=== PATIENT | female | born 1995 | race American Indian/Alaskan Native ===

== ENCOUNTER 2019-10-29 12:01 | Inpatient (IN) | payer BC, MEDICAID ==
[2019-10-30] MEDS ORDERED: Misoprostol 50 MCG (1/2 of 100 MCG) Tab VAG ONE ×2 (06:54→11:32)
[2019-10-30] MEDS ORDERED: Sodium Chloride 0.9% 10 ML Syringe FLUSH PRN (07:41)
--- NOTE | 2019-10-30 07:52 | PCM.LDHP ---
L&D History of Present Illness - General Date of Service: 10/30/19 (elective induction) Admit Problem/Dx: Patient Status Order with Admit Dx/Problem 10/30/19 07:41 Patient Status [ADT] Routine Admission Diagnosis/Problem Admission Diagnosis/Problem Elective induction of labor planned Source of Information: Patient History Limitations: Reports: No Limitations - History of Present Illness Introduction:: this 23 year old G1 who is 40 3/7 weeks presents for elective induction. Maybe just cervical ripening today as cervix is FT/50/-2. 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: : 1 LMP (Approximate): ([facility] 10/27/19) H&P Review of Systems - Review of Systems: Review Of Systems: See Below General: Reports: No Symptoms HEENT: Reports: No Symptoms Pulmonary: Reports: No Symptoms Cardiovascular: Reports: No Symptoms Gastrointestinal: Reports: No Symptoms Genitourinary: Reports: No Symptoms Musculoskeletal: Reports: No Symptoms Skin: Reports: No Symptoms Psychiatric: Reports: No Symptoms Neurological: Reports: No Symptoms Hematologic/Lymphatic: Reports: No Symptoms Immunologic: Reports: No Symptoms L&D Exam - Exam Exam: See Below - OB Specific Contraction Intensity: Mild Movement: Active Heart Tones: Present Heart Tones per Min: 135 Heart Rate (FHR) Variability: Moderate (6-25 bmp) Presentation: Vertex Estimated Weight: 7 pounds - Ribeiro Score Ribeiro Score Cervix Position: Posterior Ribeiro Score Consistency: Soft Ribeiro Score Effacement: 51-70% Ribeiro Score Dilation: Closed Ribeiro Score 's Station: -2 Ribeiro Score Total: 5 - Exam General: Alert, Oriented HEENT: PERRLA Neck: Supple Lungs: Clear to Auscultation Cardiovascular: Regular Rate, Regular Rhythm GI/Abdominal Exam: Normal Bowel Sounds Genitourinary: Normal external exam, Normal bimanual exam Back Exam: Normal Inspection Extremities: Normal Inspection, No Pedal Edema Skin: Warm, Dry, Intact Neurological: Cranial Nerves Intact Psychiatric: Alert, Normal Affect, Normal Mood - Patient Data Lab Results Last 24 hrs: Laboratory Results - last 24 hr 10/30/19 Range/Units 07:11 WBC 9.7 (4.5-11.0) K/uL RBC 3.96 (3.30-5.50) M/uL Hgb 10.7 L (12.0-15.0) g/dL Hct 33.9 L (36.0-48.0) % MCV 86 (80-98) fL MCH 27 (27-31) pg MCHC 32 (32-36) % Plt Count 261 (150-400) K/uL Neut % (Auto) 66 (36-66) % Lymph % (Auto) 25 (24-44) % [place] % (Auto) 8 H (2-6) % Eos % (Auto) 1 L (2-4) % Baso % (Auto) 0 (0-1) % Result Diagrams: 10/30/19 07:11 - Problem List (1) Elective induction of labor planned SNOMED Code(s): 810512506 ICD Code: [id number] - Status: Acute Current Visit: Yes (2) SNOMED Code(s): 54604037 ICD Code: Z34.90 - ENCNTR FOR SUPRVSN OF NORMAL , UNSP, UNSP TRIMESTER Status: Acute Current Visit: Yes Qualifiers: Weeks of gestation: 40 weeks Qualified Code(s): Z3A.40 - 40 weeks gestation of Problem List Initiated/Reviewed/Updated: Yes Orders Last 24hrs: Active Orders 24 hr Category Date Time Status Patient Status [ADT] Routine ADT 10/30/19 07:41 Ordered Antiembolic Devices [RC] .Routine Care 10/30/19 07:42 Ordered Communication Order [RC] ASDIRECTED Care 10/30/19 07:40 Ordered Communication Order [RC] ASDIRECTED Care 10/30/19 07:40 Ordered Communication Order [RC] ASDIRECTED Care 10/30/19 07:40 Ordered Communication Order [RC] ASDIRECTED Care 10/30/19 07:40 Ordered Communication Order [RC] ASDIRECTED Care 10/30/19 07:41 Ordered Heart Tones [RC] PER UNIT ROUTINE Care 10/30/19 07:41 Ordered Non Stress Test [RC] Click to Edit Care 10/30/19 07:40 Ordered Notify Provider Vital Signs [RC] PRN Care 10/30/19 07:41 Ordered Notify Provider [RC] PRN Care 10/30/19 07:40 Ordered Notify Provider [RC] PRN Care 10/30/19 07:41 Ordered Notify Provider [RC] STAT Care 10/30/19 07:40 Ordered VTE/DVT Education [RC] Click to Edit Care 10/30/19 07:42 Ordered Vital Signs [RC] PER UNIT ROUTINE Care 10/30/19 07:40 Ordered Vital Signs [RC] PER UNIT ROUTINE Care 10/30/19 07:41 Ordered Clear Liquid Diet [DIET] Diet 10/30/19 Lunch Ordered DRUG SCREEN, URINE [URCHEM] Routine Lab 10/30/19 07:11 Ordered UA W/MICROSCOPIC [URIN] Routine Lab 10/30/19 07:11 Ordered Sodium Chloride 0.9% [Saline Flush] Med 10/30/19 07:41 Ordered 10 ml FLUSH ASDIRECTED PRN fentaNYL [Sublimaze] Med 10/30/19 07:41 Ordered 100 mcg IVPUSH Q1H PRN DVT/VTE Prophylaxis Reflex [OM.PC] Routine Oth 10/30/19 07:41 Ordered Saline Lock Insert [OM.PC] Routine Oth 10/30/19 07:41 Ordered Resuscitation Status Routine Resus Stat 10/30/19 07:41 Ordered Assessment/Plan Comment:: 23 year old G1 40 3/7 weeks, elective induction. Bishops score 5, today maybe just cervical ripening and she goes home later, time will tell reactive NST, cat one strip All labs normal this morning Plan: Miso 50 mcg at 0730, will assess at noon for change Up and about may eat lightly reviewed with her the plan and she is in agreement.
--- NOTE | 2019-10-30 12:30 | PCM.PNLD ---
Labor Progress Note - VS & Meds Vital Signs: Last Vital Signs Temp 97.1 F 10/30/19 11:00 Pulse 79 10/30/19 11:00 Resp 16 10/30/19 11:00 BP 139/94 H 10/30/19 11:00 Pulse Ox 98 10/30/19 11:00 Active Medications: Current Medications Fentanyl (Sublimaze) 100 mcg IVPUSH Q1H PRN PRN Reason: Pain (moderate 4-6) Sodium Chloride (Saline Flush) 10 ml FLUSH ASDIRECTED PRN PRN Reason: Keep Vein Open Discontinued Medications Misoprostol (Cytotec) 50 mcg VAG ONETIME ONE Stop: 10/30/19 06:55 Last Admin: 10/30/19 07:26 Dose: 50 mcg Misoprostol (Cytotec) 50 mcg VAG ONETIME ONE Stop: 10/30/19 11:33 Last Admin: 10/30/19 12:19 Dose: 50 mcg - Uterine Contractions Uterine Monitoring Mode: External [place] Contraction Frequency (min): 2-4 Contraction Duration (sec): 60-90 Contraction Intensity: Mild Uterine Resting Tone: Soft - Monitoring Monitor Mode: Doppler/Auscultation Heart Rate (FHR) Baseline: 135 Heart Rate (FHR) Variability: Moderate (6-25 bmp) Accelerations: Present, 15x15 Decelerations: None Strip Review: Category I - Vaginal Exam Dilation (cm): fingertip Effacement (Percent): 50 Station: -2 Cervical Position: Posterior Sterile Vaginal Exam Performed By: Jailyn Navarro Vaginal Exam Comment: no cervical change since this morning, second dose of Miso placed at 1230, 50 mcg - Labor Progress (Free Text) Labor Progress: Elver's blood pressure was up this morning and continues to be elevated. Labs positive for proteinuria and elevated creatinine protein ratio. Preeclampsia, need to keep and progress to delivery. ce: ft/50/-2 cat one strip monitor for labor If no change by 1530 will start pitocin IV
--- NOTE | 2019-10-30 15:06 | PCM.PNLD ---
Labor Progress Note - VS & Meds Vital Signs: Last Vital Signs Temp 97.1 F 10/30/19 11:00 Pulse 75 10/30/19 13:20 Resp 18 10/30/19 13:20 BP 142/100 H 10/30/19 13:20 Pulse Ox 96 10/30/19 13:20 Active Medications: Current Medications Fentanyl (Sublimaze) 100 mcg IVPUSH Q1H PRN PRN Reason: Pain (moderate 4-6) Oxytocin/Sodium Chloride (Pitocin In Ns 20 Units/1,000 Ml) 20 unit in 1,000 mls @ 6 mls/hr IV TITRATE VIDAL; Protocol Sodium Chloride (Saline Flush) 10 ml FLUSH ASDIRECTED PRN PRN Reason: Keep Vein Open Discontinued Medications Misoprostol (Cytotec) 50 mcg VAG ONETIME ONE Stop: 10/30/19 06:55 Last Admin: 10/30/19 07:26 Dose: 50 mcg Misoprostol (Cytotec) 50 mcg VAG ONETIME ONE Stop: 10/30/19 11:33 Last Admin: 10/30/19 12:19 Dose: 50 mcg - Uterine Contractions Uterine Monitoring Mode: External [place] Contraction Frequency (min): 2 Contraction Duration (sec): 40-60 Contraction Intensity: Mild to Moderate Uterine Resting Tone: Soft - Monitoring Monitor Mode: Doppler/Auscultation Heart Rate (FHR) Baseline: 135 Heart Rate (FHR) Variability: Moderate (6-25 bmp) Accelerations: Present, 15x15 Decelerations: None Strip Review: Category I - Vaginal Exam Dilation (cm): fingertip Effacement (Percent): 50 Station: -2 Cervical Position: Posterior Sterile Vaginal Exam Performed By: Jailyn Navarro Vaginal Exam Comment: softer cervix, no dilation. - Labor Progress (Free Text) Labor Progress: preeclampsia Plan: Pitocin until 1900. If progressing will proceed. If no progression till stop the Pitocin and rest for the night. I will also order Ambien for sleep tonight. Will reassessment at 1700 for any change.
[2019-10-30] MEDS ORDERED: Lactated Ringers 1,000 ML IV SCH (15:15)
[2019-10-30] MEDS: fentaNYL 100 MCG/2 ML SDV IVPUSH PRN ×3 (16:12→19:35)
[2019-10-30] MEDS: Ondansetron 4 MG/2 ML SDV IVPUSH PRN (16:25)
[2019-10-30] MEDS ORDERED: Lactated Ringers 500 ML IV ONE (19:00)
--- NOTE | 2019-10-30 19:17 | PCM.PNLD ---
Labor Progress Note - VS & Meds Vital Signs: Last Vital Signs Temp 97.7 F 10/30/19 17:00 Pulse 85 10/30/19 18:30 Resp 20 10/30/19 18:30 BP 150/87 H 10/30/19 18:30 Pulse Ox 97 10/30/19 18:30 Active Medications: Current Medications Fentanyl (Sublimaze) 100 mcg IVPUSH Q1H PRN PRN Reason: Pain (moderate 4-6) Last Admin: 10/30/19 17:32 Dose: 100 mcg Oxytocin/Sodium Chloride (Pitocin In Ns 20 Units/1,000 Ml) 20 unit in 1,000 mls @ 6 mls/hr IV TITRATE VIDAL; Protocol Last Titration: 10/30/19 19:02 Dose: 0 munits/min, 0 mls/hr Lactated Ringer's (Ringers, Lactated) 1,000 mls @ 0 mls/hr IV ASDIRECTED VIDAL Last Admin: 10/30/19 15:15 Dose: 25 mls/hr Lactated Ringer's (Ringers, Lactated) 500 mls @ 999 mls/hr IV ASDIRECTED ONE Stop: 10/30/19 19:30 Ondansetron HCl (Zofran) 4 mg IVPUSH Q6H PRN PRN Reason: Nausea/Vomiting Last Admin: 10/30/19 16:25 Dose: 4 mg Sodium Chloride (Saline Flush) 10 ml FLUSH ASDIRECTED PRN PRN Reason: Keep Vein Open Discontinued Medications Misoprostol (Cytotec) 50 mcg VAG ONETIME ONE Stop: 10/30/19 06:55 Last Admin: 10/30/19 07:26 Dose: 50 mcg Misoprostol (Cytotec) 50 mcg VAG ONETIME ONE Stop: 10/30/19 11:33 Last Admin: 10/30/19 12:19 Dose: 50 mcg - Uterine Contractions Uterine Monitoring Mode: External [place] Contraction Frequency (min): 2-3 Contraction Duration (sec): 40-60 Contraction Intensity: Moderate to Strong Uterine Resting Tone: Soft - Monitoring Monitor Mode: Doppler/Auscultation Heart Rate (FHR) Baseline: 135 Heart Rate (FHR) Variability: Moderate (6-25 bmp) Accelerations: Present, 15x15 Decelerations: Late, Intermittent (<50% x 20 min) Strip Review: Category II - Vaginal Exam Dilation (cm): 3.5 Effacement (Percent): 80 Station: 0 Cervical Position: Anterior Sterile Vaginal Exam Performed By: Jailyn Navarro Vaginal Exam Comment: nice change since 1699. very uncomfortable - Labor Progress (Free Text) Labor Progress: Cat two strip. , o2, fluid bolus and decreased pitocin strip has improved to a cat one after interventions. Also needs god pain management. She has agreed to epidural, consent signed and BANK EXAMINER paged. Pitocin off now until epidural in and she may not need anymore if she continues to progress.
[2019-10-30] MEDS ORDERED: Lactated Ringers 1,000 ML IV ONE (19:29)
[2019-10-30] MEDS ORDERED: ePHEDrine 50 MG/ML SDV IVPUSH PRN (19:29)
[2019-10-30] MEDS ORDERED: Ropivacaine 100 ML ONE (20:08)
--- NOTE | 2019-10-30 21:52 | PCM.PNLD ---
Labor Progress Note - VS & Meds Vital Signs: Last Vital Signs Temp 97.9 F 10/30/19 21:30 Pulse 87 10/30/19 21:30 Resp 18 10/30/19 21:30 BP 120/78 10/30/19 21:30 Pulse Ox 99 10/30/19 21:30 Active Medications: Current Medications Ephedrine Sulfate (Ephedrine Sulfate) 10 mg IVPUSH ASDIRECTED PRN PRN Reason: Hypotension Fentanyl (Sublimaze) 100 mcg IVPUSH Q1H PRN PRN Reason: Pain (moderate 4-6) Last Admin: 10/30/19 19:35 Dose: 100 mcg Oxytocin/Sodium Chloride (Pitocin In Ns 20 Units/1,000 Ml) 20 unit in 1,000 mls @ 6 mls/hr IV TITRATE VIDAL; Protocol Last Titration: 10/30/19 19:02 Dose: 0 munits/min, 0 mls/hr Lactated Ringer's (Ringers, Lactated) 1,000 mls @ 0 mls/hr IV ASDIRECTED VIDAL Last Admin: 10/30/19 15:15 Dose: 25 mls/hr Ondansetron HCl (Zofran) 4 mg IVPUSH Q6H PRN PRN Reason: Nausea/Vomiting Last Admin: 10/30/19 16:25 Dose: 4 mg Sodium Chloride (Saline Flush) 10 ml FLUSH ASDIRECTED PRN PRN Reason: Keep Vein Open Discontinued Medications Lactated Ringer's (Ringers, Lactated) 500 mls @ 999 mls/hr IV ASDIRECTED ONE Stop: 10/30/19 19:30 Last Admin: 10/30/19 19:38 Dose: Not Given Lactated Ringer's (Ringers, Lactated) 1,000 mls @ 999 mls/hr IV .BOLUS ONE Stop: 10/30/19 20:29 Last Admin: 10/30/19 19:38 Dose: 999 mls/hr Ropivacaine (Naropin 0.2%) Confirm Administered Dose 100 mls @ as directed .ROUTE .STK-MED ONE Stop: 10/30/19 20:09 Misoprostol (Cytotec) 50 mcg VAG ONETIME ONE Stop: 10/30/19 06:55 Last Admin: 10/30/19 07:26 Dose: 50 mcg Misoprostol (Cytotec) 50 mcg VAG ONETIME ONE Stop: 10/30/19 11:33 Last Admin: 10/30/19 12:19 Dose: 50 mcg - Uterine Contractions Uterine Monitoring Mode: External [place] Contraction Frequency (min): 1.5-2 Contraction Duration (sec): 40-60 Contraction Intensity: Moderate Uterine Resting Tone: Soft - Monitoring Monitor Mode: Doppler/Auscultation Heart Rate (FHR) Baseline: 135 Heart Rate (FHR) Variability: Moderate (6-25 bmp) Accelerations: Present, 15x15 Decelerations: Late, Prolonged (>2x10 min), Recurrent (>50% x 20 min) Strip Review: Category III - Vaginal Exam Dilation (cm): 6-7 Effacement (Percent): 80 Station: 0 Cervical Position: Anterior Sterile Vaginal Exam Performed By: Bonnie Turcios Vaginal Exam Comment: in the past 45 minutes strip has changed and late decels are constant. - Labor Progress (Free Text) Labor Progress: emergent c section, staff called
[2019-10-30] MEDS ORDERED: Succinylcholine 200 MG/10 ML MDV ONE (21:56)
[2019-10-30] MEDS ORDERED: Propofol 200 MG/20 ML SDV ONE (21:56)
[2019-10-30] MEDS ORDERED: Oxytocin 10 Units/1 ML SDV ONE (21:58)
[2019-10-30] MEDS ORDERED: ceFAZolin 1 GM Vial ONE (22:05)
[2019-10-30] MEDS ORDERED: cefOXitin 1 GM Vial ONE (22:18)
[2019-10-30] MEDS ORDERED: Dexamethasone 4 MG/ML SDV ONE (22:39)
[2019-10-30] MEDS ORDERED: Neostigmine Methylsulfate 1 MG/ML 5 ML Syringe ONE (22:39)
[2019-10-30] MEDS ORDERED: Glycopyrrolate 0.2 MG/ML 5 ML MDV ONE (22:39)
[2019-10-30] MEDS ORDERED: Ondansetron 4 MG/2 ML SDV ONE (22:39)
[2019-10-30] MEDS ORDERED: Rocuronium 50 MG/5 ML Vial ONE (22:39)
[2019-10-30] MEDS ORDERED: fentaNYL 250 MCG/5 ML SDV ONE (22:40)
[2019-10-30] MEDS ORDERED: cefOXitin 2 GM Vial ONE (22:41)
[2019-10-30] MEDS ORDERED: Oxytocin 10 Units/1 ML SDV IM ONE (22:43)
[2019-10-30] MEDS ORDERED: fentaNYL 100 MCG/2 ML SDV ONE (23:22)
[2019-10-30] MEDS ORDERED: HYDROmorphone/Normal Saline 15 MG/30 ML PCA IV PRN (23:41)
[2019-10-30] MEDS ORDERED: Naloxone 0.4 MG/ML SDV IVPUSH PRN (23:41)
[2019-10-31] MEDS ORDERED: hydrOXYzine HCL 100 MG/2 ML SDV IM PRN (00:12)
[2019-10-31] MEDS ORDERED: Dextrose 5%-Lactated Ringers 1,000 ML IV SCH (00:15)
[2019-10-31] MEDS ORDERED: cefOXitin 2 GM in Sodium Chloride 0.9% 50 ML IV SCH (01:00)
[2019-10-31] MEDS: Ibuprofen 600 MG Tab PO SCH ×5 (02:10→17:43)
[2019-10-31] MEDS: Acetaminophen 500 MG Tab PO SCH ×4 (02:15→18:25)
--- NOTE | 2019-10-31 02:58 | ANES ---
DATE OF SERVICE: 10/30/2019 INDICATION: I was consulted by Jailyn Navarro to assess the patient for prolonged stage II labor. Upon arrival, I found a healthy 23-year-old Elver Kelly, . I explained to her and discussed with her epidural and found no contraindications with lab work as well as history. TECHNIQUE: I had her seated at the edge of the bed. Betadine prep x3 to lumbar region. Sterile drape was placed, 1% lidocaine skin wheal at the L4-L5 region. A 17-gauge Tuohy was placed to loss of resistance. Negative CSF, negative heme, negative paresthesia. I then placed a silicone catheter to 15 cm at the skin, removed the needle, began a test dose 3 mL of 1.5% lidocaine with 1:200,000 epinephrine. The catheter was then secured to her back and placed her in a supine position. She had negative sequelae from the test dose. I then dosed her with 12 mL of 0.2% ropivacaine and began an infusion of 12 mL an hour of the same 0.2% ropivacaine. She tolerated the procedure quite well. Please refer to nurse's notes for vital signs and neuro status, which were unchanged. Again, she tolerated the procedure quite well. Jimmy Brown CRNA /[id number]
[2019-10-31] MEDS: Docusate Sodium 100 MG Cap PO SCH ×2 (08:28→21:58)
[2019-10-31] MEDS: Dextrose 5%-Lactated Ringers 1,000 ML IV SCH ×2 (08:31→19:43)
[2019-10-31] MEDS: cefOXitin 2 GM in Sodium Chloride 0.9% 50 ML IV SCH ×3 (09:03→20:02)
[2019-10-31] MEDS: Magnesium Sulfate/Water 2 GM in Premix Bag 1 BAG IV SCH ×3 (09:48→21:58)
[2019-10-31] MEDS: Ondansetron 4 MG/2 ML SDV IVPUSH PRN (09:52)
--- NOTE | 2019-10-31 09:53 | PN ---
DATE OF SERVICE: 10/31/2019 SUBJECTIVE: Elver had an emergency after midnight. She reports her pain is controlled. Oral intake 2200. Urine output via Ny catheter is 1250. REVIEW OF SYSTEMS: Remainder of review of systems negative for any pertinent positives and negatives. OBJECTIVE: GENERAL: Elver is a pleasant 23-year-old female, alert and orientated. VITAL SIGNS: TPR 98.9, 85, 16, blood pressure 120/83. HEENT: Negative. NECK: Supple. HEART: Regular rate and rhythm. LUNGS: Clear. ABDOMEN: Dressing dry and intact. EXTREMITIES: Trace peripheral edema. ASSESSMENT: Emergency section on 10/31/2019. PLAN: 1. Full liquid diet, advanced to regular as tolerated. 2. Discontinue Ny catheter. 3. D5 LR 80 mL per hour. 4. Colace 100 mg p.o. b.i.d. 5. Magnesium 2 g q.6 hours x72 hours IV or length of hospitalization. 6. Continue SECURITY THREAT ANALYST for pain control. 7. We will evaluate p.r.n. or in a.m. Haleigh Moore PA-C /[id number]
[2019-11-01] MEDS: Ibuprofen 600 MG Tab PO SCH ×2 (00:26→05:22)
[2019-11-01] MEDS: Acetaminophen 500 MG Tab PO SCH ×5 (00:26→23:33)
[2019-11-01] MEDS: cefOXitin 2 GM in Sodium Chloride 0.9% 50 ML IV SCH ×4 (02:06→20:18)
[2019-11-01] MEDS: Magnesium Sulfate/Water 2 GM in Premix Bag 1 BAG IV SCH ×4 (04:32→21:21)
[2019-11-01] MEDS: HYDROmorphone 2 MG Tab PO PRN ×3 (09:02→21:18)
[2019-11-01] MEDS: Docusate Sodium 100 MG Cap PO SCH ×2 (09:04→20:20)
[2019-11-01] MEDS: Bisacodyl 5 MG Tab PO SCH ×2 (10:19→20:20)
--- NOTE | 2019-11-01 12:00 | PN ---
DATE OF SERVICE: 11/01/2019 SUBJECTIVE: Elver is postoperative day 2 following an emergency section. She has been up ambulating and vital signs have been stable. Pain controlled and vital signs stable. REVIEW OF SYSTEMS: Remainder of review of systems is negative for any pertinent positives and negatives. OBJECTIVE: GENERAL: Elver Kelly is a pleasant 23-year-old female. She is alert and orientated. VITAL SIGNS: TPR at 0728 hours; 97.7, 73, 16, blood pressure 110/60. HEENT: Negative. NECK: Supple. HEART: Regular rate and rhythm. LUNGS: Clear. ABDOMEN: Dressings dry and intact. Incision is stapled. EXTREMITIES: Without peripheral edema. ASSESSMENT: Emergency section on 10/31/2019, surgeon, Maurice Mascorro MD. PLAN: 1. Saline lock IV. 2. Continue magnesium and antibiotic IV therapy. 3. Dilaudid 2-4 mg every 4 hours p.r.n. pain. 4. Discontinue FORWARD AIR CONTROLLER/AIR OFFICER and continuous pulse ox. 5. Discontinue ibuprofen. The patient refuses to take it. 6. Dulcolax 10 mg b.i.d. until the patient has bowel movement, then discontinue. 7. May shower. 8. Continue good pulmonary toilet. 9. We will evaluate p.r.n. or in a.m. Haleigh Moore PA-C /[id number]
[2019-11-01] MEDS ORDERED: Lanolin 100% Cream 40 GM Tube TOP PRN (15:45)
[2019-11-02] MEDS: cefOXitin 2 GM in Sodium Chloride 0.9% 50 ML IV SCH ×2 (01:10→07:46)
[2019-11-02] MEDS: Magnesium Sulfate/Water 2 GM in Premix Bag 1 BAG IV SCH (03:07)
[2019-11-02] MEDS: Acetaminophen 500 MG Tab PO SCH (05:35)
[2019-11-02] MEDS: Docusate Sodium 100 MG Cap PO SCH (08:37)
[2019-11-02] MEDS: Bisacodyl 5 MG Tab PO SCH (08:37)
[2019-11-02] MEDS: HYDROmorphone 2 MG Tab PO PRN (10:05)
--- NOTE | 2019-11-02 12:16 | DISCH ---
ADMISSION DIAGNOSES: 1. Elective induction of labor. 2. Preeclampsia. 3. . DISCHARGE DIAGNOSIS: Emergency section for late decelerations, distress with delivery of a viable female. Date: 10/30/2019. Surgeon: Maurice Mascorro MD. HISTORY: Elver Kelly was admitted on 10/30/2019 for induction of labor. She had some late decelerations and showed some distress. She had an emergency section on 10/31/2019 with delivery of viable baby. There were no complications. HOSPITAL COURSE: On 10/31/2019, she was started on a full liquid diet, advanced to regular. Ny was discontinued. IV rate was decreased. Started on magnesium 2 g every 6 hours for low magnesium. ACADEMIC DEAN was continued. On 11/01/2019, IV was saline locked. She continued with the magnesium and antibiotic. IV therapy was changed to oral Dilaudid. ACADEMIC DEAN was discontinued. Started on bowel stimulation. She had 4 bowel movements. On 11/02/2019, able to be discharged to home without any complications. PHYSICAL EXAMINATION: GENERAL: Elver is a pleasant 23-year-old female. VITAL SIGNS: Height is 5 feet 5 inches, weight is 193 pounds, BMI is 32. TPR at 03:06, 97.5, 79, 16, blood pressure 136/80. HEENT: Negative. NECK: Supple. HEART: Regular rate and rhythm. LUNGS: Clear. ABDOMEN: Aquacel dressing is on. Abdominal binder is on. EXTREMITIES: Without peripheral edema. DISPOSITION: Discharged to home. CONDITION: Stable and improving. FOLLOWUP APPOINTMENT: 1. With Haleigh Moore PA-C in the surgical department on 11/12/2019 at 9 a.m. 2. Follow up with Adrianna Garibay CNM, at [facility] on 12/11/2019 at 11:30 a.m. NEW PRESCRIPTIONS: 1. Tylenol 1000 mg q.6 hours p.r.n. pain. 2. Dilaudid 2 mg oral q.6 hours p.r.n. pain, #28. 3. Lanolin use as directed. 4. Docusate sodium 200 mg oral daily. 5. Ferrous sulfate 325 mg oral twice daily. 6. Multivitamin 1 daily. 7. May take Zofran, which she has had at home 4 mg 1 tablet every 6 hours p.r.n. nausea. DIET: Usual diet as tolerated. Drink 8 to 10 glasses of water a day. ACTIVITY: No lifting over 10 pounds for 6 weeks, but you can lift baby in car seat. Driving: Do not drive for 1 week or while on narcotic medication. Shower/bathing: May shower. DISCHARGE INSTRUCTIONS: Notify provider if any fever, increased pain, nausea, vomiting, redness or swelling or drainage on incision. Wound incision care; keep site clean and dry. Wear abdominal binder for 6 weeks and then as tolerated. SPECIAL INSTRUCTIONS: Use incentive spirometer 10 times every hour while awake.
--- NOTE | 2019-11-06 14:27 | OR ---
DATE OF PROCEDURE: 10/30/2019 SURGEON: Maurice Mascorro MD PREOPERATIVE DIAGNOSIS: Term with development of late decelerations. POSTOPERATIVE DIAGNOSIS: Term with development of late decelerations. OPERATIVE PROCEDURE: section ([id number]). ANESTHESIA: General. LOG YARD MANAGER: Jailyn Navarro CNM INDICATION FOR PROCEDURE: This is a 23-year-old female presenting with term , and the patient was developing then some late decelerations and felt urgent section wound be warranted. Plan is to proceed with section with a general anesthetic and a midline incision. Potential risks of the procedure have been reviewed with the patient and she wishes to proceed. DETAILS OF PROCEDURE: The patient was taken to the operating room and placed in a supine position with a roll underneath the right hip. Ny catheter was inserted, and the abdomen prepped and draped. After general anesthetic was induced, the midline incision was made and carried down through the full-thickness abdominal wall and peritoneal cavity. The peritoneal reflection of the bladder and the uterus was divided and reflected downward. A transverse uterine incision was made, and a viable female was then delivered through the vertex presentation. The baby had 2 loops of umbilical cord around its neck likely accounting for the presentation. Cord was cut and clamped and routine care was given off the field per Jailyn Navarro CNM. The patient was given IV intrauterine Pitocin and IV cefoxitin. Good uterine contractions were noted. The placenta was delivered without difficulty and in an intact manner. The uterus was then closed with 2 layers of 2-0 Vicryl stitch which was also used to bring the urinary bladder up over the incision. At this point, the midline peritoneum was closed posteriorly with #2 Vicryl stitch. The anterior fascia was then closed with #2 Vicryl stitch as well. Subcutaneous tissue was then irrigated with cefoxitin-containing saline solution. The subcutaneous tissue was then closed with 2 layers of 3-0 and 4-0 Vicryl stitch deep and jackie for the skin. Dressing was applied. The patient was taken to the recovery room in satisfactory condition. Now, there were no evident complications. Maurice Mascorro MD /[id number]
== END 2019-11-02 | disposition home or self-care (01) | DRG 540 ==
LOC: JP.OB 10-30 07:01 → OBSVTOIN 10-30 22:40 → JP.OB 10-30 22:40 → JP.MS 10-30 23:00
PROVIDERS: ADMIT Nurse Practitioner Family; ATTEND Surgery
PROC: 10D00Z1 Extraction of Products of Conception, Low, Open Approach (ICD-10-PCS; principal; 2019-10-30)
PROC: 3E0R3BZ Introduction of Anesthetic Agent into Spinal Canal, Percutaneous Approach (ICD-10-PCS; 2019-10-30)
PROC: 00HU33Z Insertion of Infusion Device into Spinal Canal, Percutaneous Approach (ICD-10-PCS; 2019-10-30)
DX: O48.0 Post-term pregnancy (principal); Z37.0 Single live birth; O14.94 Unspecified pre-eclampsia, complicating childbirth; O76 Abnormality in fetal heart rate and rhythm complicating labor and delivery; Z3A.40 40 weeks gestation of pregnancy
CPT/HCPCS: 36415; 51702; 59409; 80053; 80305-QW; 81001; 82570; 83615; 83735; 84156; 84550; 85025; 99211; A9270-GY; J0330; J0690; J0694; J1100; J1170; J2405; J2590; J2704; J2710; J2795; J3010; J3475; J3490; J7050; J7120; J7121